=== PATIENT | female | born 1990 | race Caucasian/White ===

== ENCOUNTER → 2016-07-31 | Outpatient (CLI) | payer OTHER | LOC: MOB LAB 15:13 | PROVIDERS: ATTEND Physician Assistant | DX: N92.6 Irregular menstruation, unspecified (principal) | CPT/HCPCS: 36415; 84702 ==

== ENCOUNTER → 2016-08-06 | Outpatient (CLI) | payer OTHER | LOC: MOB LAB 13:14 | PROVIDERS: ATTEND Obstetrics & Gynecology | DX: N91.2 Amenorrhea, unspecified (principal) | CPT/HCPCS: 36415; 84702 ==

== ENCOUNTER → 2016-08-27 | Outpatient (CLI) | payer OTHER ==
[2016-08-27 14:36] LABS: BASOPHILS # (AUTO) 0.03 10*3/UL; BASOPHILS % (AUTO) 0.2 % (0-1); EOSINOPHILS # (AUTO) 0.07 10*3/UL; EOSINOPHILS % (AUTO) 0.4 % (0-8); HEMATOCRIT 39.7 % (37.0-47.0); HEMOGLOBIN 13.5 g/dL (12.0-16.0); LYMPHOCYTES # (AUTO) 2.13 10*3/uL; MEAN CORPUSCULAR HEMOGLOBIN 31.5 PG (27-31); MEAN CORPUSCULAR VOLUME 92.8 FL (81-99); MEAN PLATELET VOLUME 10.5 FL (7.4-12.2); MONOCYTES # (AUTO) 1.07 10*3/UL (0.3-0.8); MONOCYTES % (AUTO) 6.1 % (5-15); NEUTROPHILS # (AUTO) 14.15 10*3/UL; NEUTROPHILS % (AUTO) 80.7 % (50-80); PLATELET MORPHOLOGY COMMENT NORMAL MORPHOLOGY (NORM); RBC MORPHOLOGY COMMENT NORMAL MORPHOLOGY (NORM); RED BLOOD COUNT 4.28 10^6/uL (4.20-5.40); WBC MORPHOLOGY COMMENT NORMAL MORPHOLOGY (NORM)
[2016-08-27 15:11] LABS: HIV ANTIBODY NEGATIVE (N); HIV-1 P24 ANTIGEN NEGATIVE (N)
[2016-08-29 16:41] LABS: HEP B SURFACE AG Negative (Negative)
== END ==
LOC: MOB LAB 13:14
PROVIDERS: ATTEND Obstetrics & Gynecology
DX: Z36 Encounter for antenatal screening of mother (principal)
CPT/HCPCS: 36415; 80081; 86900; 86901; 87088

== ENCOUNTER → 2016-11-26 | Outpatient (CLI) | payer OTHER ==
--- NOTE | 2016-11-26 10:01 | DI ---
OBSTETRICAL ULTRASOUND, 11/26/2016 9:03 AM: Clinical History: Antepartum screening. Previous Exam: None at this facility for this . ADJUSTED DATE FROM EARLY OBUS: 07/05/2016. There is a single live IUP currently in transverse lie. Amnionic fluid content is normal. activ ity is observed as follows: cardiac and extremity. The placenta is anterior corpus and Grade 1. heart rate varies between 143-165 beats/minute and is regular. There is a 3 vessel cord. The RVOT, L VOT and 4 chamber heart view are normal. The aortic arch and descending aorta are normal. Views of th e spine, face, and kidneys are unremarkable. BPD, HC, AC, and FL measurements are 47 mm, 175 mm , 152 mm, and 34 mm, respectively. These measurements correspond to EGA values of 20 weeks 2 days, 20 weeks 1 day, 20 weeks 3 days and 20 weeks 5 days, respectively. Composite EGA is 20 weeks 3 days The US EDC is 04/12/2017. EDC by adjusted LMP is 04/11/2017. Readin. Single live fetus with transverse lie and normal amniotic fluid content. Placenta is anterior cor pus and grade 1. 2. The composite EGA is 20 weeks 3 days with an ultrasound EDC of 04/12/2017. Based on the adjusted LMP of 07/05/2016, the EDC would be 04/11/2017. 3. Antepartum screening is normal.
== END ==
LOC: US 09:01
PROVIDERS: ATTEND Obstetrics & Gynecology
DX: Z36 Encounter for antenatal screening of mother (principal); O99.332 Smoking (tobacco) complicating pregnancy, second trimester; Z3A.20 20 weeks gestation of pregnancy
CPT/HCPCS: 76805

== ENCOUNTER 2017-04-09 15:49 | Inpatient (IN) ==
[2017-04-09] MEDS ORDERED: CITRIC ACID/SODIUM CITRATE 30 ML CUP PO ONE (15:57)
[2017-04-09] MEDS ORDERED: LIDOCAINE HCL 2 % 10 ML JELLY URO-JECT TOPICAL PRN (15:57)
[2017-04-09] MEDS ORDERED: Lactated Ringers 1,000 ML PRIMARY IV ONE (15:57)
[2017-04-09] MEDS ORDERED: NORMAL SALINE 10 ML SYRINGE FLUSH IVP PRN (15:57)
[2017-04-09] MEDS ORDERED: Famotidine Inj 20 MG in Normal Saline Flush 10 ML IVP ONE (15:57)
[2017-04-09] MEDS ORDERED: CefOXitin Inj 2 GM in Sodium Chloride 0.9% 100 ML IV ONE (15:57)
[2017-04-09] MEDS ORDERED: LIDOCAINE W/ SODIUM BICARB 0.5 ML SYR SUBD PRN (15:57)
[2017-04-09] MEDS ORDERED: Metoclopramide Inj 10 MG/2 ML VIAL IV ONE (15:57)
[2017-04-09] MEDS ORDERED: Lactated Ringers 1,000 ML PRIMARY IV SCH (16:00)
[2017-04-09] MEDS ORDERED: Oxytocin 20 Units + LR 20 UNIT/1,000 ML BAG IV SCH ×2 (16:00→19:20)
[2017-04-09 16:18] LABS: Hematocrit [HCT] 38.2 % (37.0-47.0); Hemoglobin [HGB] 12.7 g/dL (12.0-16.0); MEAN CORPUSCULAR HEMOGLOBIN 31.1 PG (27-31); MEAN CORPUSCULAR HGB CONC 33.2 g/dL (33-37); MEAN CORPUSCULAR VOLUME 93.6 FL (81-99); RED BLOOD COUNT 4.08 10^6/uL (4.20-5.40)
[2017-04-09] MEDS ORDERED: Lactated Ringers 2,000 ML PRIMARY IV ONE (16:41)
[2017-04-09] MEDS ORDERED: MORPHINE SULFATE/PF 10 MG/10 ML AMPULE ONE (16:41)
[2017-04-09] MEDS ORDERED: Oxytocin 20 Units + LR 20 UNIT/1,000 ML BAG IV ONE (16:42)
[2017-04-09] MEDS ORDERED: ePHEDrine Inj 50 MG/ML AMP ONE (16:42)
[2017-04-09] MEDS ORDERED: Sodium Chloride 0.9% vial 10 ML ONE (16:45)
[2017-04-09] MEDS ORDERED: fentaNYL Inj 100 MCG/2 ML VIAL ONE (16:56)
--- NOTE | 2017-04-09 17:53 | OB.OP.NOTE ---
Operative Report Surgeon: Wendy Manager Apple: Ciaran Alonzo MD Anesthesia Type: Regional Anesthesia Provider: Alicia Abad CRNA Surgery Date: 04/09/17 Preoperative Diagnosis: Breech Presentation at 39 5/7 weeks. Postoperative Diagnosis: Same Procedure: Primary LTCS Estimated Blood Loss (mL): 600 Fluids: 2000 ml Complications: None Findings at Surgery: Viable female , Apgars 9/9, weight 5 lbs, 11oz in vashti breech position. Normal uterus tubes and ovaries. Minimal amniotic fluid. Indications for the Procedure: Breech presentation with probable PROM. Description of Procedure: The patient was taken to the operating room and placed in a seated position where spinal anesthesia was administered. She was then placed supine with a leftward tilt. She was prepped and draped in a normal sterile fashion and a Staples catheter was placed. Adequacy of spinal anesthesia was tested and found to be adequate. A Pfannenstiel incision was then made in the usual manner with the transverse skin incision being made with a scalpel. Subcutaneous tissue and fascia were then divided with Bovie cautery. The fascia was then from the underlying rectus muscle with Bovie cautery and blunt dissection both superiorly and inferiorly. Rectus muscle bellies were then bluntly in the midline and the peritoneal cavity was entered with blunt dissection. An Rayo retractor was then placed. The lower uterine segment was incised sharply with a scalpel in a transverse manner. Return of minimal clear amniotic fluid was noted. The uterine defect was extended with lateral traction. The breech was then elevated into the uterine incision and fundal pressure was applied resulting in prompt delivery of the entire fetus without difficulty. The mouth and nose were suctioned. The cord was clamped and cut. The infant was passed to the waiting nursery attendant. A specimen of cord blood was obtained. The placenta was delivered by expression. The uterus was then exteriorized and cleared of clots and debris with a laparotomy sponge. The uterine incision was then closed with a running locking 0 Vicryl suture and imbricated with a second running 0 Vicryl suture. Good hemostasis was noted on the uterine incision after closure and good fundal tone was noted. The pelvis was then copiously irrigated. Uterus was replaced in the abdomen and the paracolic gutters were copiously irrigated. Reinspection of the uterine incision again revealed good hemostasis. The Rayo retractor was removed and the peritoneum was closed with a running 2-0 Vicryl suture. Subfascial tissues were then irrigated, inspected, and found to be hemostatic. The fascia was closed with a running 0 Vicryl suture from each apex to midline. Subcutaneous space was then irrigated and made hemostatic with Bovie cautery. The skin was enclosed with Insorb absorbable anahi. The wound was dressed. The uterus was then expressed and the vagina was cleared of clots and debris. The Staples catheter was left in place having produced clear urine throughout the case. Sponge, lap, and needle counts were correct 2. There were no complications at surgery. The patient left to recovery in good condition. Plan: Routine postoperative care.
--- NOTE | 2017-04-09 18:05 | CRNA.PROGR ---
Anesthesia Time - - Start date: 04/09/17 End date: 04/09/17 - Procedure/Recovery Time Anesthesia : Time In: 17:02 Anesthesia : Time Out: 17:53 Anesthesia : Total Time: 51 - Total Anesthesia Time Total Anesthesia Time (minutes): 51 - Other Weight: 62.596 kg Height: 5 ft 3.25 in Body Mass Index (BMI): 24.2 Physical Status: P3 ([place], Tobacco, Poor historian, Drug use ???) Anesthesia Type: Spinal Block
--- NOTE | 2017-04-09 18:06 | CRNA.PROGR ---
Post Anesthesia Phase II - Post Anesthesia Phase II Patient Stable and Discharged To: Med/Surg Care Assumed By Surgeon: James Nguyen MD Temperature: 99.3 F Respiratory Rate: 16 Pulse Ox: 97 Total Anna Score at Discharge: 9 Post Anesthesia Discharge Criteria Met: Yes Additional Details: Duramorph 0.12 mg in SAB. No nausea, no puritis yet. Did well
--- NOTE | 2017-04-09 18:09 | CRNA.PROCE ---
Central Neuraxis Block [facility] - - Safety Measures: Time Out Taken - - Type of Block: Subarachnoid Reason for Block: Surgical Moniters Used During Block: EKG, SPO2, NIBP Sedation Used - Enter Amount Used in Comment Field: Fentanyl (mcg): Yes (50 mcg) Positioning: Sitting Skin Prep Used: ChloroPrep (Twice) Skin Infiltration - Enter Amount Used in Comment Field: 1% Xylocaine (mL): Yes ( 1.5 ml) Introducer User: 23 Gauge Spinal Needle Used: 25 Tamir 80 mm (1 pass, clear csf, no parasthesia.) Local Anesthetic - Enter Amount Used in Comment Field: 0.75 % Bupivacaine with Dextrose (ml): Yes (1.6 ml) Additive Used - Enter Amount Used in Comment Field: Preservative Free Morphine ( mg): Yes (0.12) Anesthesia Time - Other Weight: 62.596 kg Height: 5 ft 3.25 in Body Mass Index (BMI): 24.2
[2017-04-09] MEDS ORDERED: ONDANSETRON 4 MG/2 ML VIAL IVP PRN (19:20)
[2017-04-09] MEDS ORDERED: CALCIUM CARBONATE 500 MG (TUMS) CHEWABLE TABLET PO PRN (19:20)
[2017-04-09] MEDS ORDERED: Nalbuphine Inj 20 MG/ML Ampule IVP PRN (19:20)
[2017-04-09] MEDS ORDERED: diphenhydrAMINE 25 MG CAPSULE PO PRN (19:20)
[2017-04-09] MEDS ORDERED: Famotidine Inj 20 MG in Normal Saline Flush 10 ML IVP PRN (19:20)
[2017-04-09] MEDS ORDERED: DIPH,PERTUSS,TET(ADACEL) VAC/PF 0.5 ML (Tdap) IM ONE (19:20)
[2017-04-09] MEDS ORDERED: diphenhydrAMINE 50 MG/1 ML VIAL IV PRN (19:20)
[2017-04-09] MEDS ORDERED: LANOLIN HPA 40 GM TUBE TOPICAL PRN (19:20)
[2017-04-09] MEDS ORDERED: Naloxone Inj 0.01 MG, Sodium Chloride 0.9% vial 1 ML IVP PRN ×2 (19:20)
[2017-04-09] MEDS: D5-LR 1,000 ML PRIMARY IV SCH (19:30)
[2017-04-09] MEDS: KETOROLAC 15 MG/1 ML VIAL IVP PRN (19:30)
[2017-04-10] MEDS: KETOROLAC 15 MG/1 ML VIAL IVP PRN ×4 (01:21→19:50)
[2017-04-10 05:15] LABS: Hematocrit [HCT] 31.4 % (37.0-47.0); Hemoglobin [HGB] 10.4 g/dL (12.0-16.0); MEAN CORPUSCULAR HEMOGLOBIN 31.4 PG (27-31); MEAN CORPUSCULAR HGB CONC 33.1 g/dL (33-37); MEAN CORPUSCULAR VOLUME 94.9 FL (81-99); MEAN PLATELET VOLUME 10.6 FL (7.4-12.2); RED BLOOD COUNT 3.31 10^6/uL (4.20-5.40)
[2017-04-10] MEDS: D5-LR 1,000 ML PRIMARY IV SCH (06:44)
[2017-04-10] MEDS: oxyCODONE-ACETAMINOPHEN 5-325 TAB PO PRN ×4 (07:08→20:51)
[2017-04-10] MEDS: Senna/Docusate Tab 1 TAB TAB PO SCH ×2 (08:09→20:51)
[2017-04-10] MEDS: Prenatal Multivitamin Tab 1 TAB TAB PO SCH (08:09)
[2017-04-10] MEDS: NORMAL SALINE 10 ML SYRINGE FLUSH IVP PRN ×3 (08:09→19:50)
--- NOTE | 2017-04-10 10:37 | OB.PROGRES ---
Subjective Post Op Day: 1 Pain Management: PO Staples Catheter: No Flatus: Yes Diet: Regular Feeding Method: Exculsively Ambulating: Yes Concerns / Additional Information: The patient is up and ambulating in the halls. She reports good pain control as well as good bowel and bladder function. She has no complaints. Objective - General General Appearance: POSITIVE: No Acute Distress - Abdomen Abdominal Wound Assessment: Silverlone Dressing - Fundus/Lochia/Perineum Uterus Consistency: Firm Assesstment / Plan Assessment / Plan: POD 1 doing well. CCM.
[2017-04-10] MEDS ORDERED: GUAIFENESIN 100 MG/5 ML PO PRN (14:17)
[2017-04-10] MEDS ORDERED: IBUPROFEN 800 MG TABLET PO PRN (17:45)
[2017-04-10] MEDS: GUAIFENESIN 100 MG/5 ML PO PRN ×2 (19:51→23:30)
[2017-04-11] MEDS: oxyCODONE-ACETAMINOPHEN 5-325 TAB PO PRN ×3 (01:30→10:06)
[2017-04-11] MEDS: GUAIFENESIN 100 MG/5 ML PO PRN (05:26)
--- NOTE | 2017-04-11 07:53 | OB.PROGRES ---
Subjective Post Op Day: 2 Pain Management: PO Staples Catheter: No Flatus: Yes Diet: Regular Feeding Method: Exculsively Ambulating: Yes Concerns / Additional Information: Lillian is doing very well, and requests discharge to home. Assesstment / Plan Assessment / Plan: POD 2 Doing well. Discharge to home.
--- NOTE | 2017-04-11 07:55 | DCSUMMARY ---
Hospitalization Summary Admit Date: 04/09/17 Discharge Date: 04/11/17 Primary Diagnosis:: Term , Breech Presentation Secondary Diagnosis:: PROM Primary Surgery and Date: Primary LTCS Delivery Type: Hospital Course: Normal, uncomplicated surgery and course. Discharge to home on POD 2 in good condition. F/u 1 week. / Postop Complications: None [place] Complications: None Exam - Vitals Vital Signs: Vital Signs Temperature 98.0 F Temperature Source Oral Pulse Rate [Apical] 90 Pulse Rate [Pulse Oximeter] 77 Pulse Rate 80 Respiratory Rate 18 Blood Pressure [Left Arm] 100/78 Blood Pressure [Right Arm] 113/72 Blood Pressure 109/67 Pulse Ox 97 Oxygen Flow Rate 1 Oxygen Delivery Method Room Air Height 5 ft 3 in Weight 138 lb
[2017-04-11] MEDS: Senna/Docusate Tab 1 TAB TAB PO SCH (08:13)
[2017-04-11] MEDS: Prenatal Multivitamin Tab 1 TAB TAB PO SCH (08:13)
[2017-04-11 09:02] VITALS: BP 112/87; RESP 16; TEMP 98.6; O2SAT 96
--- NOTE | 2017-04-11 12:30 | CRNA.PROGR ---
Anesthesia Note - Progress Notes Anesthesia Progress Note: Discharged home today doing well. Vital Signs - Last Taken Temperature 98.6 F 04/11/17 09:00 Pulse Rate 96 04/11/17 09:00 Respiratory Rate 16 04/11/17 09:00 Blood Pressure 112/87 04/11/17 09:00 Pulse Ox 96 04/11/17 09:00
== END 2017-04-11 11:20 | disposition home or self-care (01) | DRG 766 ==
LOC: OBOP 15:49 → OBOR 16:53 → OBIP 18:38
PROVIDERS: ADMIT Obstetrics & Gynecology; ATTEND Obstetrics & Gynecology